=== PATIENT | female | born 1945 | race Caucasian/White ===

== ENCOUNTER 2016-11-06 08:30 | Day surgery (SDC) | payer MEDICARE ==
[~2016-11-06] VITALS: Ht 172.7 cm; Wt 68.0 kg
[~2016-11-06 08:30] MED LIST: LISI-607 PO; SIMV20TA4 PO
[2016-11-06] MEDS ORDERED: fentaNYL-PF 50 mCg/mL 2 mL Inj ONE (08:53)
[2016-11-06] MEDS ORDERED: ASPI-973 PO (09:00)
[2016-11-06 09:01] VITALS: BP 140/79; PULSE 99; RESP 16; O2SAT 98
[2016-11-06] MEDS ORDERED: 0.9% Sodium Chloride 1,000 ML IV ONE (09:08)
[2016-11-06 10:07] VITALS: BP 99/63; PULSE 89; RESP 14; O2SAT 97
[2016-11-06] MEDS ORDERED: 0.9% Sodium Chloride 1,000 ML IV PRN (10:07)
[2016-11-06] MEDS ORDERED: Sodium Chloride LOK Flush 10 mL Syringe IV PRN (10:10)
[2016-11-06] MEDS ORDERED: fentaNYL-PF 50 mCg/mL 2 mL Inj IVPUSH PRN (10:10)
[2016-11-06 10:17] VITALS: BP 92/61; PULSE 82; RESP 14; O2SAT 96
[2016-11-06 10:27] VITALS: BP 107/63; PULSE 86; RESP 16; O2SAT 97
--- NOTE | 2016-11-06 23:06 | ENDO ---
[address] [address] ENDOSCOPY PROCEDURE PATIENT: GLORIA ARNOLD : 1945 MR#: [id number] ADMIT: 11/06/2016 JOB ID: [id number] PROCEDURE: Colonoscopy INDICATION: Screening. ANESTHESIA CLASSIFICATION: Patient's ASA classification is II. Mallampati score is II. MEDICATIONS: 1. Versed at 3 mg. 2. Fentanyl 75 mcg. INSTRUMENT USED: PCF-H180 AL QUALITY OF PREPARATION: Prep quality was good. PROCEDURE DETAILS: After informed consent was obtained, the patient was brought into the GI suite, where she was placed on oxygen via nasal cannula and monitored with continuous pulse oximeter, telemetry, and blood pressure monitoring. A time-out was performed. Then, she was placed in a left lateral decubitus position and medications were administered for sedation. A digital rectal exam was performed, it was unremarkable. Colonoscope was then inserted into the rectum and advanced under visualization to the cecum, which was identified by the presence of the ileocecal valve and appendiceal orifice. Once the cecum was reached, the colonoscope was withdrawn back to the rectum as the mucosa and lumen were examined. In the rectum, retroflexion was performed. Following retroflexion, remaining air in the rectum was suctioned, and procedure was completed. FINDINGS: Scattered diverticula were seen throughout the left side of the colon. IMPRESSION: Left-sided diverticulosis. RECOMMENDATIONS: 1. Fiber rich diet. 2. Repeat colonoscopy in 10 years, sooner if symptoms dictate. COMPLICATIONS: None. ESTIMATED BLOOD LOSS: Zero.
== END 2016-11-06 23:59 | disposition home or self-care (01) ==
LOC: END 08:30
PROVIDERS: ATTEND Internal Medicine Gastroenterology
DX: Z12.11 Encounter for screening for malignant neoplasm of colon (principal); K57.30 Diverticulosis of large intestine without perforation or abscess without bleeding; Z86.010 Personal history of colon polyps; I10 Essential (primary) hypertension; E11.9 Type 2 diabetes mellitus without complications; E78.00 Pure hypercholesterolemia, unspecified; M81.0 Age-related osteoporosis without current pathological fracture; F41.1 Generalized anxiety disorder; F43.0 Acute stress reaction; M19.90 Unspecified osteoarthritis, unspecified site; Z79.82 Long term (current) use of aspirin
CPT/HCPCS: G0105; G0500; J2250; J3010; J7030